=== PATIENT | female | born 1980 ===

== ENCOUNTER → 2020-08-30 | Outpatient (CLI) | payer SELFPAY ==
[2020-08-31 08:47] LABS: Candida species (DNA Probe) Negative (NEGATIVE); G. vaginalis (DNA Probe) Negative (NEGATIVE); T. vaginalis (DNA Probe) Negative (NEGATIVE)
[2020-09-03 16:07] LABS: HPV 16 Negative (Negative); HPV 18 Negative (Negative); HPV OTHER HR TYPES Negative (Negative)
== END | disposition home or self-care (01) ==
LOC: LAB SHORT 15:05 → LAB 15:05
PROVIDERS: Advanced Practice Midwife
DX: Z01.419 Encounter for gynecological examination (general) (routine) without abnormal findings (principal); N76.0 Acute vaginitis
CPT/HCPCS: 87480; 87510; 87624; 87660; G0123

== ENCOUNTER 2021-08-12 13:06 | Day surgery (SDC) | payer OTHER ==
[~2021-08-12] VITALS: Ht 160 cm; Wt 54.1 kg
--- NOTE | 2021-08-12 15:21 | NUR ---
08/12/21 1521 STACIA LOPEZ SUPRACLAVICULAR NERVE BLOCK CONDUCTED IN PRE-OP WITH DR. AYON 1511: TIME OUT CONDUCTED, SITE CHECK PERFORMED 151: 2MG VERSED, 100MCG FENTANYL ADMINISTERED BY DR. AYON 1513: PROCEDURE START 1519: PROCEDURE COMPLETE 6L/MIN VIA NON-REBREATHER & PULSE OX ON PATIENT THOUGHOUT PROCEDURE. PT TOLERATED WELL.
--- NOTE | 2021-08-12 17:01 | NUR ---
08/12/21 1701 Jodi Martin PT CONTINUES TO C/O NAUSEA AFTER ZOFRAN & SCOPOLAMINE PATCH. PHENERGAN 12.5MG IVP ADMINISTERED. PT RESTING IN RECLINER, DECLINING ORAL INTAKE. PT ENCOURAGED TO SIP WATER, SALTINE CRACKERS PROVIDED. AT CHAIRSIDE.
== END 2021-08-12 18:30 | disposition home or self-care (01) ==
LOC: ORSCSDS 13:06
PROVIDERS: Orthopaedic Surgery
PROC: 0LQ14ZZ Repair Right Shoulder Tendon, Percutaneous Endoscopic Approach (ICD-10-PCS; principal; 2021-08-12 14:30)
PROC: 0RNJ4ZZ Release Right Shoulder Joint, Percutaneous Endoscopic Approach (ICD-10-PCS; principal; 2021-08-12 14:30)
DX: M75.111 Incomplete rotator cuff tear or rupture of right shoulder, not specified as traumatic (principal); M75.21 Bicipital tendinitis, right shoulder; M75.41 Impingement syndrome of right shoulder
CPT/HCPCS: A9270; C1713; J0171; J0690; J1100; J2250; J2370; J2405; J2550; J2704; J3010; J7040; J7120

== ENCOUNTER → 2021-10-30 | Outpatient (CLI) | payer OTHER ==
[2021-11-03 11:08] LABS: HPV 16 Negative (Negative); HPV 18 Negative (Negative); HPV OTHER HR TYPES Negative (Negative)
== END | disposition home or self-care (01) ==
LOC: LAB SHORT 13:06
PROVIDERS: Advanced Practice Midwife
DX: Z01.419 Encounter for gynecological examination (general) (routine) without abnormal findings (principal)
CPT/HCPCS: 87624; G0123

== ENCOUNTER → 2023-01-18 | Outpatient (CLI) | payer OTHER ==
[2023-01-19 16:07] LABS: HPV 16 Negative (Negative); HPV 18 Negative (Negative); HPV OTHER HR TYPES Negative (Negative)
== END | disposition home or self-care (01) ==
LOC: LAB SHORT 15:15 → LAB 15:15
PROVIDERS: Advanced Practice Midwife
DX: Z01.419 Encounter for gynecological examination (general) (routine) without abnormal findings (principal)
CPT/HCPCS: 87624; G0145